=== PATIENT | male | born 1995 | race Caucasian/White ===

== ENCOUNTER 2020-07-11 18:53 | Emergency (ER) | payer OTHER ==
[2020-07-11] MEDS ORDERED: ACETAMINOPHEN-CODEINE 300/30MG TAB ONE (19:40)
== END 2020-07-11 19:53 | disposition home or self-care (01) ==
LOC: EDH 18:53
DX: S90.31XA Contusion of right foot, initial encounter (principal); W18.39XA Other fall on same level, initial encounter; Y93.89 Activity, other specified; Y92.89 Other specified places as the place of occurrence of the external cause; Y99.8 Other external cause status
CPT/HCPCS: 73630